=== PATIENT | female | born 1990 | race African-American/Black ===

== ENCOUNTER 2016-07-15 22:38 | Emergency (ER) | payer OTHER ==
[2016-07-15 22:45] VITALS: BMI 31.4
[2016-07-16 00:37] VITALS: BP 103/69; PULSE 97; TEMP 98
[2016-07-16 00:56] LABS: URINE APPEARANCE CLEAR; URINE BILIRUBIN NEGATIVE (NEGATIVE); URINE COLOR STRAW; URINE GLUCOSE (UA) NEGATIVE (NEGATIVE); URINE KETONE NEGATIVE (NEGATIVE); URINE NITRITE NEGATIVE (NEGATIVE); URINE PROTEIN NEGATIVE (NEGATIVE); URINE UROBILINOGEN NEGATIVE E.U./dl (0.2-1.0)
[2016-07-16 01:07] LABS: URINE BLOOD 1+ (NEGATIVE); URINE LEUK ESTERASE TRACE (NEGATIVE)
[2016-07-16 01:08] LABS: URINE BACTERIA RARE /hpf (NONE SEEN); URINE RBC <1 /hpf (0-3); URINE WBC 1 /hpf (3-5)
[2016-07-16 01:11] LABS: URINE MARIJUANA THC NEGATIVE ng/ml (CUTOFF=50)
== END 2016-07-16 00:27 | disposition left against medical advice (07) ==
LOC: JER 22:38
DX: O26.892 Other specified pregnancy related conditions, second trimester (principal); R10.30 Lower abdominal pain, unspecified; Z3A.27 27 weeks gestation of pregnancy
CPT/HCPCS: 80307; 81003; 81015; 99281-25

== ENCOUNTER 2017-07-08 04:37 | Emergency (ER) | payer OTHER ==
--- NOTE | 2017-07-08 04:44 | PDOC ---
History of Present Illness - General Stated Complaint: VOMITING Time Seen by Provider: 07/08/17 04:43 - History of Present Illness Initial Comments: 27 year old female with no significant PMH presenting with nausea, vomiting, diarrhea, and weakness for the past two days. Both her and her partner presented for similar problems but he was more well appearing and futher into the time course of the disease. Her symptoms were more vomiting predominant. She states she has had vomiting every hour for the past 10 hours and can't keep down any food. She also had one episode of chills with diaphoresis after each episode of vomiting. She has started to develop a slight headache. She denies chest pain, SOB, cough, congestion, or myalgias. 07/08/17 05:02 Past History - Past Medical History Allergies/Adverse Reactions: Allergies Allergy/AdvReac Type Severity Reaction Status Date / Time No Known Allergies Allergy Verified 07/08/17 04:52 Home Medications: Ambulatory Orders NK [No Known Home Medication] 02/15/16 Asthma: No Cancer: No Cardiac Disorders: No Diabetes: No HTN: No Seizures: No Thyroid Disease: No - Surgical History Abdominal Surgery: No - Reproductive History (#): 3 Para: 0 Spontaneous : 2 - Immunization History Immunization Up to Date: Yes - Suicide/Smoking/Psychosocial Hx Smoking Status: No Smoking History: Never smoked Have you smoked in the past 12 months: No Number of Cigarettes Smoked Daily: 0 Hx Alcohol Use: No Drug/Substance Use Hx: No Substance Use Type: None Hx Substance Use Treatment: No Review of Systems - Review of Systems Constitutional: Yes: Chills, Diaphoresis. No: Fever, Loss of Appetite HEENTM: No: Eye Pain, Blurred Vision, Recent change in vision Respiratory: No: Cough, Shortness of Breath, Wheezing, Productive cough Cardiac (ROS): Yes: Lightheadedness. No: Chest Pain, Irregular Heart Rate, Palpitations, Syncope, Chest Tightness ABD/GI: Yes: Nausea, Poor Appetite, Poor Fluid Intake, Vomiting, Abdominal cramping : No: Burning, Dysuria, Discharge, Frequency Musculoskeletal: No: Back Pain, Joint Pain, Neck Pain Integumentary: No: Bruising, Lesions, Lumps Neurological: Yes: Headache. No: Numbness, Paresthesia, Tremors, Unsteady Gait , Dizziness *Physical Exam - Physical Exam General Appearance: Yes: Nourished, Appropriately Dressed. No: Apparent Distress HEENT: positive: EOMI, ANGEL, Normal ENT Inspection, Normal Voice Neck: positive: Trachea midline, Normal Thyroid, Supple. negative: Tender, Rigid Respiratory/Chest: positive: Lungs Clear, Normal Breath Sounds. negative: Chest Tender, Respiratory Distress, Accessory Muscle Use Cardiovascular: positive: Regular Rhythm, Regular Rate Gastrointestinal/Abdominal: positive: Normal Bowel Sounds, Flat, Soft. negative : Tender Musculoskeletal: positive: Normal Inspection. negative: Decreased Range of Motion Extremity: positive: Normal Capillary Refill, Normal Inspection, Normal Range of Motion. negative: Tender Integumentary: positive: Normal Color, Dry, Warm Neurologic: positive: Fully Oriented, Alert, Normal Mood/Affect, Normal Response , Motor Strength 5/5 Medical Decision Making - Medical Decision Making 27 year old female with u-preg positive and nausea vomiting apparently resolved after one dose of Reglan. TVUS demonstrating a single IUP with heartbeat and ovaries unremarkable. Pending official transvaginal US and signed out to Dr. Cuevas in stable condition. 07/08/17 06:48 *DC/Admit/Observation/Transfer Diagnosis at time of Disposition: Qualifiers: Weeks of gestation: less than 8 weeks Qualified Code(s): Z3A.01 - Less than 8 weeks gestation of - Discharge Dispostion Disposition: HOME Condition at time of disposition: Improved - Referrals - Patient Instructions - Post Discharge Activity
[2017-07-08 04:56] VITALS: BMI 26.6
--- NOTE | 2017-07-08 05:00 | PDOC ---
History of Present Illness - General Chief Complaint: Nausea/Vomiting Stated Complaint: VOMITING Time Seen by Provider: 07/08/17 04:43 Past History - Past Medical History Allergies/Adverse Reactions: Allergies Allergy/AdvReac Type Severity Reaction Status Date / Time No Known Allergies Allergy Verified 07/08/17 04:52 Home Medications: Ambulatory Orders NK [No Known Home Medication] 02/15/16 Asthma: No Cancer: No Cardiac Disorders: No Diabetes: No HTN: No Seizures: No Thyroid Disease: No - Surgical History Abdominal Surgery: No - Reproductive History (#): 3 Para: 0 Spontaneous : 2 - Immunization History Immunization Up to Date: Yes - Suicide/Smoking/Psychosocial Hx Smoking Status: No Smoking History: Current some day smoker Have you smoked in the past 12 months: No Number of Cigarettes Smoked Daily: 2 Information on smoking cessation initiated: No Hx Alcohol Use: No Drug/Substance Use Hx: Yes ([facility]) Substance Use Type: None Hx Substance Use Treatment: No *Physical Exam - Vital Signs Last Vital Signs Temp Pulse Resp BP Pulse Ox 98.1 F 78 14 118/57 99 07/08/17 04:52 07/08/17 04:52 07/08/17 04:52 07/08/17 04:52 07/08/17 04:52
[2017-07-08] MEDS ORDERED: METOCLOPRAMIDE HCL INJECTION 10 MG/2 ML VIAL IVPUSH ONE (05:04)
[2017-07-08] MEDS ORDERED: SODIUM CHLORIDE 1,000 ML IV STA (05:06)
[2017-07-08] MEDS ORDERED: METOCLOPRAMIDE HCL INJECTION 10 MG/2 ML VIAL ONE (05:10)
[2017-07-08 05:40] LABS: URINE APPEARANCE CLEAR; URINE BILIRUBIN NEGATIVE (NEGATIVE); URINE BLOOD NEGATIVE (NEGATIVE); URINE COLOR YELLOW; URINE GLUCOSE (UA) NEGATIVE (NEGATIVE); URINE KETONE NEGATIVE (NEGATIVE); URINE LEUK ESTERASE NEGATIVE (NEGATIVE); URINE NITRITE NEGATIVE (NEGATIVE); URINE PROTEIN NEGATIVE (NEGATIVE); URINE UROBILINOGEN NEGATIVE mg/dL (0.2-1.0)
[2017-07-08 05:59] LABS: BASO % 0.1 % (0-2.0); HEMATOCRIT 40.4 % (32.4-45.2); HEMOGLOBIN 13.8 GM/dL (10.7-15.3); LYMPH % 5.5 % (8-40); MCH 30.3 pg (25.7-33.7); MEAN CELL VOLUME 89.1 fl (80-96); MEAN PLT VOLUME 8.1 fl (7.5-11.1); MONO % 4.4 % (3.8-10.2); PLATELET COUNT 278 K/MM3 (134-434); RBC 4.53 M/mm3 (3.60-5.2); RDW 13.1 % (11.6-15.6); WHITE BLOOD COUNT 9.8 K/mm3 (4.0-10.0)
--- NOTE | 2017-07-08 06:14 | PDOC ---
Attending Attestation - Resident Resident Name: Nirav Alvarado - HPI HPI: 07/08/17 06:14 Pt presents to the ED complaining of nausea and vomiting and diarrhea that started today. Denies fevers or urinary complaints. Also complains of a brief episode of pelvic pain that has now resolved. LMP 5 weeks ago. - Physicial Exam PE: 07/08/17 06:17 Agree with resident exam. PAtient is well appearing. Abdomen is non tender, non distetended. - Medical Decision Making 07/08/17 06:18 Pt presents to the ED complaining of nausea and vomiting. test is positive. Given episode of pelvic pain, need to evaluate for ectopic. Will check labs and BHCG, transvaginal US and reassess.
[2017-07-08 06:44] LABS: ALBUMIN 3.8 g/dl (3.4-5.0); ANION GAP 9 (8-16); BILIRUBIN,TOTAL 0.4 mg/dL (0.2-1.0); BLOOD UREA NITROGEN 9 mg/dL (7-18); CALCIUM 8.3 mg/dL (8.5-10.1); CHLORIDE 105 mmol/L (98-107); CO2 23 mmol/L (21-32); CREATININE 0.7 mg/dL (0.55-1.02); GLUCOSE,RANDOM 82 mg/dL (74-106); SGOT/AST 17 U/L (15-37); SGPT/ALT 27 U/L (12-78); SODIUM 137 mmol/L (136-145); TOT PROT 7.6 g/dl (6.4-8.2)
[2017-07-08 07:00] LABS: ALK PHOS 78 U/L (45-117)
--- NOTE | 2017-07-08 08:46 | PDOC ---
*Physical Exam - Vital Signs Last Vital Signs Temp Pulse Resp BP Pulse Ox 98.1 F 78 14 118/57 99 07/08/17 04:52 07/08/17 04:52 07/08/17 04:52 07/08/17 04:52 07/08/17 04:52 - Physical Exam Comments: 07/08/17 08:44 General Appearance: Nourished. No Apparent Distress HEENT: No Pharyngeal Erythema, Tonsillar Exudate, Tonsillar Erythema Neck: No Cervical Lymphadenopathy Respiratory/Chest: Lungs Clear, Normal Breath Sounds. No Crackles, Rales, Rhonchi, Wheezing Cardiovascular: Regular Rhythm, Regular Rate. No Murmur, Gallops, Rubs Gastrointestinal/Abdominal: Normal Bowel Sounds, Soft. No Guarding, Rebound, Tenderness Musculoskeletal: No CVA Tenderness Extremity: Normal Capillary Refill Integumentary: Normal Color, Dry, Warm Neurologic: Fully Oriented, Alert, Normal Mood/Affect, Normal Response, ED Treatment Course - LABORATORY CBC & Chemistry Diagram: 07/08/17 05:47 07/08/17 05:47 - ADDITIONAL ORDERS Additional order review: Laboratory Results 07/08/17 07/08/17 07/08/17 05:47 05:25 05:25 Sodium 137 Potassium 4.0 Chloride 105 Carbon Dioxide 23 Anion Gap 9 BUN 9 Creatinine 0.7 Creat Clearance w eGFR > 60 Random Glucose 82 Calcium 8.3 L Total Bilirubin 0.4 D AST 17 ALT 27 Alkaline Phosphatase 78 Total Protein 7.6 Albumin 3.8 Beta HCG, Quant 77547.0 Urine Color Yellow Urine Appearance Clear Urine pH 5.0 Ur Specific [place] 1.027 Urine Protein Negative Urine Glucose (UA) Negative Urine Ketones Negative Urine Blood Negative Urine Nitrite Negative Urine Bilirubin Negative Urine Urobilinogen Negative Ur Leukocyte Esterase Negative Urine HCG, Qual Positive 07/08/17 05:47 RBC 4.53 MCV 89.1 MCHC 34.0 RDW 13.1 MPV 8.1 Neutrophils % 89.0 H Lymphocytes % 5.5 L D Monocytes % 4.4 Eosinophils % 1.0 D Basophils % 0.1 - Medications Given in the ED: ED Medications Discontinued Medications Generic Name Dose Route Start Last Admin Trade Name Freq PRN Reason Stop Dose Admin Sodium Chloride 1,000 mls @ 1,000 mls/hr 07/08/17 05:06 07/08/17 05:54 Normal Saline - IV 07/08/17 06:05 1,000 mls/hr ASDIR STA Administration Metoclopramide HCl 10 mg 07/08/17 05:04 07/08/17 05:54 Reglan Injection - IVPUSH 07/08/17 05:05 10 mg ONCE ONE Administration Progress Note - Progress Note Progress Note: The patient is a 27 year old female who presented for evaluation of nausea, vomiting, diarrhea. Lab work demonstrated that the patient is , but is otherwise unremarkable. The patient is pending a transvaginal US prior to discharge with ob follow up. Medical Decision Making - Medical Decision Making 07/08/17 09:09 US demonstrated a single live intrauterine as read by our radiologist. We are comfortable discharging the patient home at this time with clinical research assistant follow up. We discussed the results and the plan with the patient who voiced understanding and is agreeable with the plan. *DC/Admit/Observation/Transfer Diagnosis at time of Disposition: Qualifiers: Weeks of gestation: less than 8 weeks Qualified Code(s): Z3A.01 - Less than 8 weeks gestation of - Discharge Dispostion Disposition: HOME Condition at time of disposition: Improved - Referrals Referrals: Hunter Carrera MD [Staff Physician] - - Patient Instructions Printed Discharge Instructions: DI for -- Discomforts and Remedies Additional Instructions: Please return to the ER if you experience concerning or worsening symptoms including worsening nausea, vomiting, fevers, or abdominal pain. Your lab results were normal but showed that you are . Please call to schedule a follow up appointment with your [facility] physician within 2-3 days to further discuss your ER visit and . - Post Discharge Activity
[2017-07-08 09:11] VITALS: BP 105/46; PULSE 69; TEMP 98.2
== END 2017-07-08 09:22 | disposition home or self-care (01) ==
LOC: JER 04:37
PROC: 3E0337Z Introduction of Electrolytic and Water Balance Substance into Peripheral Vein, Percutaneous Approach (ICD-10-PCS; principal; 2017-07-08)
PROC: 3E033GC Introduction of Other Therapeutic Substance into Peripheral Vein, Percutaneous Approach (ICD-10-PCS; 2017-07-08)
DX: O26.891 Other specified pregnancy related conditions, first trimester (principal); R10.2 Pelvic and perineal pain; Z3A.01 Less than 8 weeks gestation of pregnancy
CPT/HCPCS: 36415; 76817-TC; 80053; 81003; 84702; 84703; 85025; 96361; 96374; 99283-25; J7030

== ENCOUNTER 2018-03-17 10:22 | Emergency (ER) | payer OTHER ==
[2018-03-17 11:05] VITALS: BMI 26.2
[2018-03-17] MEDS ORDERED: SODIUM CHLORIDE 0.9% 500 ML INFUS.BAG IV ONE (11:37)
[2018-03-17] MEDS ORDERED: ACETAMINOPHEN 325 MG TABLET (FP) PO ONE (11:38)
--- NOTE | 2018-03-17 11:38 | PDOC ---
History of Present Illness - General Chief Complaint: Nausea/Vomiting Stated Complaint: THROAT PROBLEM Time Seen by Provider: 03/17/18 11:27 History Source: Patient Exam Limitations: No Limitations - History of Present Illness Initial Comments: 03/17/18 13:22 The patient is a 27-year-old female, with no past medical history, who presents to the ED with headache and nausea, sore throat and difficulty swallowing for the past 2 days. The patient denies vomiting but confirms spitting up clear liquid. She has associated symptoms of fever, chills, sore throat, trouble swallowing, ear pain, and general weakness. LMP 1 month ago. +sick contacts include child with cough/URI sx. No travel. Denies abdominal pain or diarrhea, no urinary sx. Denies urinary symptoms. Allergies: NKA Surgical history: C section PCP: none reported Past History - Past Medical History Allergies/Adverse Reactions: Allergies Allergy/AdvReac Type Severity Reaction Status Date / Time No Known Allergies Allergy Verified 03/17/18 11:00 Home Medications: Ambulatory Orders Ibuprofen 600 mg PO Q8H PRN #20 tablet 03/17/18 Ondansetron [Zofran Odt -] 4 mg SL TID PRN #9 od.tablet 03/17/18 Asthma: No Cancer: No Cardiac Disorders: No COPD: No Diabetes: No HTN: No Seizures: No Thyroid Disease: No - Surgical History Abdominal Surgery: No - Reproductive History (#): 3 Para: 0 Cervical CA: No Dysfunctional Uterine Bleeding: No Ectopic : No Endometrial CA: No Polycystic Ovaries: No Tubal Ligation: No Spontaneous : 0 - Immunization History Immunization Up to Date: Yes - Suicide/Smoking/Psychosocial Hx Smoking Status: No Smoking History: Unknown if ever smoked Have you smoked in the past 12 months: No Number of Cigarettes Smoked Daily: 0 Hx Alcohol Use: No Drug/Substance Use Hx: No Substance Use Type: None Hx Substance Use Treatment: No Review of Systems - Review of Systems Able to Perform ROS?: Yes Comments:: 03/17/18 13:23 GENERAL/CONSTITUTIONAL: +Fever and chills. +Weakness. no sweats. HEAD, EYES, EARS, NOSE AND THROAT: No change in vision or hearing. +Ear pain. + Sore throat. +Difficulty swallowing. No congestion. CARDIOVASCULAR: No chest pain or palpitations, syncope or edema. RESPIRATORY: No SOB, cough, wheezing, or hemoptysis. GASTROINTESTINAL +Nausea and vomiting. No diarrhea or constipation. No bloody stools. GENITOURINARY: No hematuria, dysuria, frequency, urgency or other changes. MUSCULOSKELETAL: No joint or muscle swelling or pain. No neck or back pain. SKIN: No rash or changes in skin color or lesions. NEUROLOGIC: +Headache. No vertigo, loss of consciousness, or change in strength/ sensation. HEMATOLOGIC/LYMPHATIC: No anemia, easy bruising/bleeding, or history of blood clots. ALLERGIC/IMMUNOLOGIC: No allergies All other systems reviewed and negative, or as documented in HPI. *Physical Exam - Vital Signs Last Vital Signs Temp Pulse Resp BP Pulse Ox 100.2 F H 86 16 111/68 99 03/17/18 10:50 03/17/18 10:50 03/17/18 10:50 03/17/18 10:50 03/17/18 10:50 - Physical Exam Comments: 03/17/18 13:23 General: Well appearing, awake and alert, NAD. malaised HEENT: NCAT, PERRL, EOMI, clear conjunctiva, anicteric, dry mucus membranes. Airway patent, normal phonation. Uvula midline. No sinus tenderness, TM clear, no pinna tenderness to manipulation. Bilateral tonsil hypertrophy with exudates. No trismus. Neck: neck supple, FROM Resp: CTAB, normal and even respirations, no respiratory distress CVS: +tachycardic,, no murmurs, 2+ peripheral pulses throughout, no peripheral edema Abdomen: soft, NTND, no peritoneal signs. Back: nontender, normal inspection and ROM MSK: no edema, WINN x4, ROM intact. No clubbing or cyanosis. normal bulk and tone. Neuro: alert, oriented appropriately Skin: warm and well perfused, cap refill <2 sec, normal color ED Treatment Course - LABORATORY CBC & Chemistry Diagram: 03/17/18 12:00 03/17/18 12:00 Medical Decision Making - Medical Decision Making 03/17/18 12:22 I, Flaquita Ferris MD, attest that this document has been prepared under my direction and personally reviewed by me in its entirety. I further attest, that it accurately reflects all work, treatment, procedures and medical decision -making performed by me. 27-year-old female with no medical history presenting with sore throat, nausea, headache, dizziness. Differential diagnosis includes pharyngitis, strep throat, mononucleosis, [employer], RPA, epiglottitis, viral syndrome, dehydration, electrolyte/metabolic derangements less likely airway involvement, epiglottitis, RPA or [employer] MEMBER as normal phonation and clear tonsillar findings to suggest mono vs pharyngitis vs strep Vital signs notable for fever otherwise no respiratory distress. Airway patent. Exam of the oropharynx revealed bilateral exudates and tonsillar hypertrophy. strep test_ Positive for Group A strep monoscreen performed, pending results. basic labs and lytes with +leukocytosis of 17K, c/w infection/inflammation. normal lytes .neg preg test. ED course: given antipyretics, tylenol/toradol, IVF, dexamethasone and reglan for headache treatment. VENTURA likely from fever. strep pharyngitis confirmed, pt elects for Bicillin IM shot, which is appropriate on clinical reeval, feels much improved, tolerating PO juice and fluids. eager for discharge. airway remains patent, breathing comfortable steroids and abx will cover her infection and acute inflammation. hand hygiene, wash hands soap and water, respiratory precautions, salt water gargles, motrin/tylenol PRN analgesia and antipyretics. warm lemon tea and c/w supportive care. dispo: Pt to be discharged in stable condition. Patient and family made aware of impression and plan, return precautions discussed (including but not limited to worsening pain or symptoms), fevers, or signs of infection, chest pain, respiratory distress, inability to tolerate oral intake, dehydration, syncope, or neurologic changes). Follow up with PMD and/or specialist as recommended, follow up information provided, take medications as instructed for duration of time. continue with supportive care, avoid triggers and precipitants. All questions answered to patient's satisfaction and expressed understanding and comfort with this. 03/17/18 13:25 03/17/18 13:28 *DC/Admit/Observation/Transfer Diagnosis at time of Disposition: Strep pharyngitis - Discharge Dispostion Disposition: HOME Condition at time of disposition: Improved Decision to Admit order: No - Prescriptions Prescriptions: Ibuprofen 600 mg PO Q8H PRN #20 tablet PRN Reason: Pain Level 4 - 6 Ondansetron [Zofran Odt -] 4 mg SL TID PRN #9 od.tablet PRN Reason: Nausea And/Or Vomiting - Referrals Referrals: William Christianson MD [Staff Physician] - [facility] [Provider Group] [facility] [Provider Group] - Patient Instructions Printed Discharge Instructions: DI for Strep Throat, DI for Vomiting -- Adult, DI for Nausea -- Adult Additional Instructions: Your laboratory / imaging results were significant for elevated white blood cell count to signify infection your Strep test was positive you were treated with a shot of penicillin and IV steroids, so will improve your symptoms over the next 24-48 hours Follow up with your physician and consultants as instructed, take your medications as instructed including zofran every 8 hours as needed for nausea. motrin/tylenol as needed for fever and/or pain. stay well hydrated, adequate fluids. salt water gargles, warm lemon tea to soothe the throat wash your hands with soap and water and avoid coughing and spreading infection. work note also provided Return if worsening symptoms including fevers, headache, vomiting, visual or hearing disturbances, abdominal pain, chest pain, shortness of breath, syncope, dehydration, inability to take things by mouth/vomiting, altered mental status, or worsening concerning symptoms. do not drink alcohol with your medications. - Post Discharge Activity Forms/Work/School Notes: Back to Work
[2018-03-17] MEDS ORDERED: ACETAMINOPHEN 325 MG TABLET (FP) ONE (11:59)
[2018-03-17] MEDS ORDERED: DEXAMETHASONE SOD PHOSPHATE 20 MG/5 ML VIAL IVPB ONE (12:21)
[2018-03-17] MEDS ORDERED: METOCLOPRAMIDE HCL INJECTION 10 MG/2 ML VIAL IVPUSH ONE (12:21)
[2018-03-17 12:24] LABS: BASO % 0.4 % (0-2.0); EOS % 0.3 % (0-4.5); HEMATOCRIT 37.2 % (32.4-45.2); HEMOGLOBIN 12.7 GM/dL (10.7-15.3); LYMPH % 7.9 % (8-40); MCH 29.9 pg (25.7-33.7); MCHC 34.3 g/dl (32.0-36.0); MEAN CELL VOLUME 87.2 fl (80-96); MEAN PLT VOLUME 8.6 fl (7.5-11.1); MONO % 7.3 % (3.8-10.2); NEUT % 84.1 % (42.8-82.8); PLATELET COUNT 259 K/MM3 (134-434); RBC 4.26 M/mm3 (3.60-5.2); RDW 13.3 % (11.6-15.6); WHITE BLOOD COUNT 17.3 K/mm3 (4.0-10.0)
[2018-03-17] MEDS ORDERED: METOCLOPRAMIDE HCL INJECTION 10 MG/2 ML VIAL ONE (12:26)
[2018-03-17] MEDS ORDERED: DEXAMETHASONE SOD PHOSPHATE 10 MG/1 ML VIAL ONE (12:26)
[2018-03-17 12:44] LABS: ALBUMIN 3.8 g/dl (3.4-5.0); ALK PHOS 85 U/L (45-117); ANION GAP 9 MMOL/L (8-16); BILIRUBIN,TOTAL 0.6 mg/dL (0.2-1); BLOOD UREA NITROGEN 7 mg/dL (7-18); CALCIUM 9.2 mg/dL (8.5-10.1); CHLORIDE 101 mmol/L (98-107); CO2 26 mmol/L (21-32); CREATININE 0.8 mg/dL (0.55-1.3); GLUCOSE,RANDOM 68 mg/dL (74-106); LIPASE 58 U/L (73-393); POTASSIUM 3.9 mmol/L (3.5-5.1); SGOT/AST 15 U/L (15-37); SGPT/ALT 25 U/L (13-61); SODIUM 135 mmol/L (136-145); TOT PROT 8.1 g/dl (6.4-8.2)
[2018-03-17] MEDS ORDERED: PENICILLIN G BENZATHINE 1,200,000 UNIT/2 ML PFS IM ONE (13:21)
[2018-03-17] MEDS ORDERED: KETOROLAC TROMETHAMINE 15 MG/ML VIAL IVPUSH ONE (13:21)
[2018-03-17] MEDS ORDERED: KETOROLAC TROMETHAMINE 15 MG/ML VIAL ONE (13:41)
[2018-03-17] MEDS ORDERED: PENICILLIN G BENZATHINE 2,400,000 UNIT/4 ML PFS ONE (13:47)
[2018-03-17 13:56] VITALS: BP 97/69; PULSE 85; TEMP 99.4
== END 2018-03-17 13:56 | disposition home or self-care (01) ==
LOC: JER 10:22
PROC: 3E02329 Introduction of Other Anti-infective into Muscle, Percutaneous Approach (ICD-10-PCS; principal; 2018-03-17)
PROC: 3E0333Z Introduction of Anti-inflammatory into Peripheral Vein, Percutaneous Approach (ICD-10-PCS; 2018-03-17)
PROC: 3E033GC Introduction of Other Therapeutic Substance into Peripheral Vein, Percutaneous Approach (ICD-10-PCS; 2018-03-17)
PROC: 3E0333Z Introduction of Anti-inflammatory into Peripheral Vein, Percutaneous Approach (ICD-10-PCS; 2018-03-17)
DX: J02.0 Streptococcal pharyngitis (principal); B95.0 Streptococcus, group A, as the cause of diseases classified elsewhere
CPT/HCPCS: 36415; 80053; 83690; 84703; 85025; 96372; 96374; 96375; 99282-25

== ENCOUNTER 2018-07-22 09:46 | Emergency (ER) | payer OTHER ==
[2018-07-22 09:59] VITALS: BP 101/54; PULSE 67; TEMP 98.3; BMI 27.1
--- NOTE | 2018-07-22 10:38 | PDOC ---
History of Present Illness - General History Source: Patient Exam Limitations: No Limitations <Marlee Hannon - Last Filed: 07/22/18 12:06> <Siddhartha Esquivel - Last Filed: 07/22/18 16:30> - General Chief Complaint: Chest Pain Stated Complaint: CHEST PAIN Time Seen by Provider: 07/22/18 10:37 - History of Present Illness Initial Comments: 07/22/18 12:06 Patient is a 28 year old female with no significant past medical history who presents with chest pain, sharp left sided in character, lasting for the past several weeks, nonpleuritic, intermittent, exacerbating with stress, and occurring for approximately minutes at a time. Patient notes her pain to worsen today, prompting her arrival to the ED. She is currently on oral contraceptives and had an elective D&C 07/18. She denies recent palpitations or shortness of breath. She denies recent fevers, chills, headache or dizziness. She denies recent nausea, vomit, diarrhea or constipation. She denies recent dysuria, frequency, urgency or hematuria. Allergies: NKDA Past surgical history: Elective D&C. (Marlee Hannon) Past History <Marlee Hannon - Last Filed: 07/22/18 12:06> - Past Medical History Asthma: No Cancer: No Cardiac Disorders: No COPD: No Diabetes: No HTN: No Seizures: No Thyroid Disease: No - Surgical History Abdominal Surgery: No - Reproductive History (#): 3 Para: 0 Cervical CA: No Dysfunctional Uterine Bleeding: No Ectopic : No Endometrial CA: No Polycystic Ovaries: No Tubal Ligation: No Spontaneous : 0 - Immunization History Immunization Up to Date: Yes - Suicide/Smoking/Psychosocial Hx Smoking Status: No Smoking History: Never smoked Have you smoked in the past 12 months: No Number of Cigarettes Smoked Daily: 0 Hx Alcohol Use: No Drug/Substance Use Hx: No Substance Use Type: None Hx Substance Use Treatment: No <Siddhartha Esquivel - Last Filed: 07/22/18 16:30> - Past Medical History Allergies/Adverse Reactions: Allergies Allergy/AdvReac Type Severity Reaction Status Date / Time No Known Allergies Allergy Verified 07/22/18 09:55 Home Medications: Ambulatory Orders NK [No Known Home Medication] 07/22/18 Review of Systems - Review of Systems Able to Perform ROS?: Yes All Other Systems: Reviewed and Negative <Marlee Hannon - Last Filed: 07/22/18 12:06> <Siddhartha Esquivel - Last Filed: 07/22/18 16:30> - Review of Systems Comments:: 07/22/18 12:06 CONSTITUTIONAL: No fever, no chills, no fatigue EYES: No visual changes ENT: No ear pain, no sore throat CARDIOVASCULAR: +Chest pain. No palpitations RESPIRATORY: No cough, no SOB GI: No abdominal pain, no nausea, no vomiting, no constipation, no diarrhea GENITOURINARY: No dysuria, no frequency, no hematuria MUSKULOSKELETAL: No back pain, no joint pain, no myalgias SKIN: No rash NEURO: No headache (Marlee Hannon) *Physical Exam <Marlee Hannon - Last Filed: 07/22/18 12:06> <Siddhartha Esquivel - Last Filed: 07/22/18 16:30> - Vital Signs Last Vital Signs Temp Pulse Resp BP Pulse Ox 98.3 F 67 18 101/54 L 100 07/22/18 09:56 07/22/18 09:56 07/22/18 09:56 07/22/18 09:56 07/22/18 09:56 - Physical Exam Comments: 07/22/18 12:06 CONSTITUTIONAL: Well-appearing; well-nourished; in no apparent distress HEAD: Normocephalic; atraumatic EYES: PERRL; EOM intact ENMT: External appears normal; normal oropharynx NECK: Supple; non-tender; no cervical lymphadenopathy CARD: Normal S1, S2; no murmurs, rubs, or gallops RESP: Normal chest excursion with respiration; breath sounds clear and equal bilaterally; no wheezes, rhonchi, or rales ABD: Soft, non-distended; non-tender; no palpable organomegaly, no palpable hernias EXT: Normal ROM in all four extremities; non-tender to palpation; distal pulses intact SKIN: Warm, dry, no rash NEURO: No focal neurological deficiencies. (Marlee Hannon) Heart Score/ECG Review <Marlee Hannon - Last Filed: 07/22/18 12:06> <Siddhartha Esquivel - Last Filed: 07/22/18 16:30> #1 EKG performed at: 22 July 2018 at 10:58 Vent Rate 67 bpm NV interval 184 ms QRS duration 76 ms QT/QTc 406/429 ms P-R-T axes 39 65 52 Normal sinus rhythm Normal ECG (Marlee Hannon) ED Treatment Course - LABORATORY CBC & Chemistry Diagram: 07/22/18 12:45 07/22/18 12:45 <Siddhartha Esquivel - Last Filed: 07/22/18 16:30> - ADDITIONAL ORDERS Additional order review: Laboratory Results 07/22/18 07/22/18 12:45 12:45 Sodium 138 Potassium 3.8 Chloride 107 Carbon Dioxide 25 Anion Gap 5 L BUN 9 Creatinine 0.7 Creat Clearance w eGFR 100.38 Random Glucose 75 Calcium 8.9 Total Bilirubin 0.2 AST 25 ALT 33 Alkaline Phosphatase 69 Creatine Kinase 83 Troponin I < 0.02 Total Protein 7.5 Albumin 3.4 Serum , Qual Positive 07/22/18 12:45 RBC 3.82 MCV 88.3 MCHC 32.7 RDW 15.6 D MPV 7.8 Neutrophils % 55.5 D Lymphocytes % 31.6 D Monocytes % 8.2 Eosinophils % 4.1 D Basophils % 0.6 - RADIOLOGY Radiology Studies Ordered: Category Date Time Status CHEST CTA [CT] Stat CT Scan 07/22/18 14:19 Taken DUPLEX VASCUL US-2LEGS [US] Stat Ultrasound 07/22/18 10:55 Completed - Medications Given in the ED: ED Medications Discontinued Medications Generic Name Dose Route Start Last Admin Trade Name Freq PRN Reason Stop Dose Admin Acetaminophen 650 mg 07/22/18 15:53 07/22/18 16:00 Tylenol - PO 07/22/18 15:54 650 mg ONCE ONE Administration Medical Decision Making <Marlee Hannon - Last Filed: 07/22/18 12:06> <Siddhartha Esquivel - Last Filed: 07/22/18 16:30> - Medical Decision Making 07/22/18 16:27 28-year-old female, 4 days post dilation and evacuation, on OCPs presents with atraumatic pleuritic left-sided chest wall discomfort that has persisted for the past several weeks. Patient moderate risk of PE by Wells criteria. Lower extremity Doppler ultrasound shows no evidence of DVT. CTA of chest obtained. Patient requesting to be discharged due to familial circumstances and promises to return if the PE is identified on the CT. i advised her of the danger associated with untreated PE. She is expressed understanding. (Siddhartha Esquivel) *DC/Admit/Observation/Transfer <Marlee Hannon - Last Filed: 07/22/18 12:06> <Siddhartha Esquivel - Last Filed: 07/22/18 16:30> Diagnosis at time of Disposition: Atypical chest pain - Discharge Dispostion Disposition: HOME Condition at time of disposition: Stable - Referrals Referrals: Sincere Olivas MD [Staff Physician] - - Patient Instructions Printed Discharge Instructions: DI for Atypical Chest Pain - Post Discharge Activity Forms/Work/School Notes: Back to School - Attestations Scribe Attestion: 07/22/18 12:08 Documentation prepared by Marlee Hannon, acting as certified court/medical interpreter for Siddhartha Esquivel MD. (Marlee Hannon)
--- NOTE | 2018-07-22 11:32 | EKG ---
Test Reason : Blood Pressure : / mmHG Vent. Rate : 060 BPM Atrial Rate : 060 BPM P-R Int : 184 ms QRS Dur : 078 ms QT Int : 400 ms P-R-T Axes : 035 066 046 degrees QTc Int : 400 ms SINUS RHYTHM WITH MARKED SINUS ARRHYTHMIA NONSPECIFIC T WAVE ABNORMALITY ABNORMAL ECG WHEN COMPARED WITH ECG OF 21-JUN-2015 15:03, NO SIGNIFICANT CHANGE WAS FOUND Confirmed by JOSIE JOYA, LAUREN ([id number] on 07/22/2018 11:31:42 AM Referred By: Confirmed By:LAUREN GALINDO MD
[2018-07-22 13:27] LABS: BASO % 0.6 % (0-2.0); EOS % 4.1 % (0-4.5); HEMATOCRIT 33.8 % (32.4-45.2); HEMOGLOBIN 11.1 GM/dL (10.7-15.3); LYMPH % 31.6 % (8-40); MCH 28.9 pg (25.7-33.7); MCHC 32.7 g/dl (32.0-36.0); MEAN CELL VOLUME 88.3 fl (80-96); MEAN PLT VOLUME 7.8 fl (7.5-11.1); MONO % 8.2 % (3.8-10.2); NEUT % 55.5 % (42.8-82.8); PLATELET COUNT 260 K/MM3 (134-434); RBC 3.82 M/mm3 (3.60-5.2); RDW 15.6 % (11.6-15.6); WHITE BLOOD COUNT 7.9 K/mm3 (4.0-10.0)
[2018-07-22 13:53] LABS: ALBUMIN 3.4 g/dl (3.4-5.0); ALK PHOS 69 U/L (45-117); ANION GAP 5 MMOL/L (8-16); BILIRUBIN,TOTAL 0.2 mg/dL (0.2-1); BLOOD UREA NITROGEN 9 mg/dL (7-18); CALCIUM 8.9 mg/dL (8.5-10.1); CHLORIDE 107 mmol/L (98-107); CO2 25 mmol/L (21-32); CREATININE 0.7 mg/dL (0.55-1.3); GLUCOSE,RANDOM 75 mg/dL (74-106); POTASSIUM 3.8 mmol/L (3.5-5.1); SGOT/AST 25 U/L (15-37); SGPT/ALT 33 U/L (13-61); SODIUM 138 mmol/L (136-145); TOT PROT 7.5 g/dl (6.4-8.2)
[2018-07-22] MEDS ORDERED: ACETAMINOPHEN 325 MG TABLET (FP) PO ONE (15:53)
[2018-07-22] MEDS ORDERED: ACETAMINOPHEN 325 MG TABLET (FP) ONE (15:54)
--- NOTE | 2018-07-23 15:17 | EKG ---
Test Reason : Blood Pressure : / mmHG Vent. Rate : 067 BPM Atrial Rate : 067 BPM P-R Int : 184 ms QRS Dur : 076 ms QT Int : 406 ms P-R-T Axes : 039 065 052 degrees QTc Int : 429 ms NORMAL SINUS RHYTHM NORMAL ECG WHEN COMPARED WITH ECG OF 22-JUL-2018 09:41, NO SIGNIFICANT CHANGE WAS FOUND Confirmed by KASEY MARTIN MD ([id number]) on 07/23/2018 3:16:31 PM Referred By: Confirmed By:KASEY MARTIN MD
== END 2018-07-22 16:35 | disposition home or self-care (01) ==
LOC: JER 09:46
DX: R07.89 Other chest pain (principal)
CPT/HCPCS: 36415; 71275-TC; 80053; 82550; 84484; 84703; 85025; 93005; 93010; 93970-TC; 99283-25

== ENCOUNTER 2022-07-09 10:58 | Emergency (ER) | payer OTHER ==
[2022-07-09 11:21] VITALS: PULSE 74; RESP 18; BMI 24.2
[2022-07-09] MEDS ORDERED: SODIUM CHLORIDE 0.9% 500 ML INFUS.BAG IV ONE (12:25)
[2022-07-09] MEDS ORDERED: ACETAMINOPHEN 1000 MG/100 ML BAG IVPB ONE (12:26)
[2022-07-09] MEDS ORDERED: ACETAMINOPHEN INJECTION 100 ML IVPB ONE (12:34)
[2022-07-09 12:45] LABS: BASO % 0.5 % (0-2.0); HEMATOCRIT 35.6 % (32.4-45.2); HEMOGLOBIN 11.7 GM/dL (10.7-15.3); MCHC 32.9 g/dl (32.0-36.0); MEAN CELL VOLUME 85.2 fl (80-96); MEAN PLT VOLUME 7.8 fl (7.5-11.1); MONO % 6.5 % (3.8-10.2); PLATELET COUNT 291 10^3/uL (134-434); RBC 4.18 M/mm3 (3.60-5.2); RDW 14.8 % (11.6-15.6); WHITE BLOOD COUNT 10.1 K/mm3 (4.0-10.0)
[2022-07-09 13:28] VITALS: BP 103/61; TEMP 98.8
[2022-07-09 13:33] LABS: THROAT:GRP A STREP NOT DETECTED (NOTDETECTED)
[2022-07-09 13:36] LABS: EPI CELLS 11 /uL (0-25.1); HYALINE CASTS 1 /uL (0-3.1); URINE APPEARANCE CLEAR; URINE BACTERIA 11 /uL (0-1359); URINE BILIRUBIN NEGATIVE (NEGATIVE); URINE COLOR YELLOW; URINE GLUCOSE (UA) NEGATIVE (NEGATIVE); URINE KETONE TRACE (NEGATIVE); URINE LEUK ESTERASE NEGATIVE (NEGATIVE); URINE NITRITE NEGATIVE (NEGATIVE); URINE PROTEIN NEGATIVE (NEGATIVE); URINE RBC 55 /uL (0-23.9); URINE WBC 9 /uL (0-25.8)
[2022-07-09 13:45] LABS: CALCIUM 8.9 mg/dL (8.5-10.1)
[2022-07-09 13:46] LABS: ALBUMIN 3.4 g/dl (3.4-5.0)
[2022-07-09 13:48] LABS: CREATININE 0.8 mg/dL (0.55-1.3)
[2022-07-09 13:50] LABS: BILIRUBIN,TOTAL 0.4 mg/dL (0.2-1); TOT PROT 7.3 g/dl (6.4-8.2)
[2022-07-09] MEDS ORDERED: FAMOTIDINE 20 MG/50 ML IVPB 20 MG/50 ML MG IVPB ONE ×2 (13:59→15:26)
== END 2022-07-09 16:30 | disposition home or self-care (01) ==
LOC: JER 10:58
PROC: 3E033GC Introduction of Other Therapeutic Substance into Peripheral Vein, Percutaneous Approach (ICD-10-PCS; principal; 2022-07-09)
PROC: 3E033NZ Introduction of Analgesics, Hypnotics, Sedatives into Peripheral Vein, Percutaneous Approach (ICD-10-PCS; 2022-07-09)
DX: O99.511 Diseases of the respiratory system complicating pregnancy, first trimester (principal); R07.0 Pain in throat; O26.891 Other specified pregnancy related conditions, first trimester; R10.2 Pelvic and perineal pain; Z3A.01 Less than 8 weeks gestation of pregnancy; Z20.822 Contact with and (suspected) exposure to COVID-19
CPT/HCPCS: 0241U-QW; 36415; 76817-TC; 80053; 81003; 84702; 85025; 86850; 86900; 86901; 87086; 87651; 99284-25

== ENCOUNTER 2022-07-13 16:02 | Emergency (ER) | payer OTHER ==
[2022-07-13 16:16] VITALS: BP 104/65; PULSE 71; RESP 18; TEMP 98.4; BMI 23.5
[2022-07-13] MEDS ORDERED: ACETAMINOPHEN 500 MG TABLET (FP) PO ONE (16:39)
[2022-07-13] MEDS ORDERED: ACETAMINOPHEN 500 MG TABLET (FP) ONE (16:53)
[2022-07-13 17:11] LABS: BASO % 1.3 % (0-2.0); EOS % 2.5 % (0-4.5); HEMATOCRIT 34.2 % (32.4-45.2); HEMOGLOBIN 11.5 GM/dL (10.7-15.3); MCH 28.4 pg (25.7-33.7); MCHC 33.6 g/dl (32.0-36.0); MEAN CELL VOLUME 84.5 fl (80-96); MEAN PLT VOLUME 7.2 fl (7.5-11.1); MONO % 10.4 % (3.8-10.2); NEUT % 57.8 % (42.8-82.8); PLATELET COUNT 316 10^3/uL (134-434); RBC 4.05 M/mm3 (3.60-5.2); RDW 14.3 % (11.6-15.6); WHITE BLOOD COUNT 10.4 K/mm3 (4.0-10.0)
[2022-07-13 17:21] LABS: PH,URINE 6.5 (5.0-8.0); URINE APPEARANCE CLEAR; URINE BILIRUBIN NEGATIVE (NEGATIVE); URINE COLOR YELLOW; URINE GLUCOSE (UA) NEGATIVE (NEGATIVE); URINE KETONE TRACE (NEGATIVE); URINE LEUK ESTERASE NEGATIVE (NEGATIVE); URINE NITRITE NEGATIVE (NEGATIVE); URINE PROTEIN NEGATIVE (NEGATIVE)
[2022-07-13 18:08] LABS: BLOOD UREA NITROGEN 11.3 mg/dL (7-18)
[2022-07-13 18:11] LABS: CREATININE 0.8 mg/dL (0.55-1.3)
== END 2022-07-13 20:48 | disposition home or self-care (01) ==
LOC: JER 16:02
DX: O20.9 Hemorrhage in early pregnancy, unspecified (principal); Z3A.01 Less than 8 weeks gestation of pregnancy
CPT/HCPCS: 36415; 76817-TC; 80048; 81003; 84702; 85025; 86850; 86900; 86901; 87086; 99284-25

== ENCOUNTER 2022-09-09 20:59 | Emergency (ER) | payer OTHER ==
[2022-09-09 21:04] VITALS: BP 97/66; PULSE 80; RESP 18; TEMP 98.9; BMI 27.9
[2022-09-09] MEDS ORDERED: PENICILLIN G BENZATHINE 1,200,000 UNIT/2 ML PFS IM ONE ×2 (22:37→22:41)
[2022-09-09] MEDS ORDERED: DEXAMETHASONE SOD PHOSPHATE 10 MG/1 ML VIAL PO ONE (22:37)
[2022-09-09] MEDS ORDERED: DEXAMETHASONE SOD PHOSPHATE 10 MG/1 ML VIAL ONE (22:40)
== END 2022-09-09 22:49 | disposition home or self-care (01) ==
LOC: JERFT 20:59
PROC: 3E033GC Introduction of Other Therapeutic Substance into Peripheral Vein, Percutaneous Approach (ICD-10-PCS; principal; 2022-09-09)
PROC: 3E0234Z Introduction of Serum, Toxoid and Vaccine into Muscle, Percutaneous Approach (ICD-10-PCS; 2022-09-09)
DX: R07.0 Pain in throat (principal); R13.10 Dysphagia, unspecified; J03.90 Acute tonsillitis, unspecified
CPT/HCPCS: 99284-25; J1100

== ENCOUNTER 2023-06-09 07:00 | Inpatient (IN) | payer OTHER ==
[2023-06-09] MEDS: ELECTROLYTE-148 SOLN 1,000 ML IV SCH (08:30)
[2023-06-09 09:09] VITALS: BMI 34.1
[2023-06-09 09:10] LABS: BASO % 0.4 % (0-2.0); EOS % 1.6 % (0-4.5); HEMATOCRIT 32.1 % (32.4-45.2); HEMOGLOBIN 10.9 GM/dL (10.7-15.3); LYMPH % 17.7 % (8-40); MCH 29.2 pg (25.7-33.7); MCHC 33.8 g/dl (32.0-36.0); MEAN CELL VOLUME 86.4 fl (80-96); MEAN PLT VOLUME 7.9 fl (7.5-11.1); MONO % 8.7 % (3.8-10.2); NEUT % 71.6 % (42.8-82.8); PLATELET COUNT 252 10^3/uL (134-434); RBC 3.72 M/mm3 (3.60-5.2); RDW 14.9 % (11.6-15.6)
[2023-06-09 09:13] LABS: INR 0.97 (0.83-1.09); PROTHROMBIN TIME (PATIENT) 11.3 SEC (9.7-13.0)
[2023-06-09 09:22] LABS: CALCIUM 8.3 mg/dL (8.5-10.1)
[2023-06-09 09:26] LABS: CREATININE 0.6 mg/dL (0.55-1.3)
[2023-06-09] MEDS: CITRIC ACID/SODIUM CITRATE 30 ML UNIT-DOSE CUP PO ONE (09:55)
[2023-06-09] MEDS: FERROUS SO4 325 MG TABLET (FP) PO SCH (10:20)
[2023-06-09] MEDS: PRENATAL VITAMINS W/ FOLIC ACID TABLET (FP) PO SCH (10:21)
[2023-06-09] MEDS ORDERED: morphine SULFATE/PF 1 MG/2 ML (2cc Syringe - QUVA) EP ONE (10:36)
[2023-06-09] MEDS ORDERED: PHENYLEPHRINE HCL 10 MG/1 ML SINGLE DOSE VIAL ONE (10:44)
[2023-06-09] MEDS ORDERED: SODIUM CHLORIDE 0.9% P/F 10 ML VIAL IJ ONE (10:44)
[2023-06-09] MEDS ORDERED: ceFAZolin SODIUM 1 GM VIAL ONE (10:44)
[2023-06-09] MEDS ORDERED: OXYTOCIN 10 UNITS/ML VIAL ONE ×2 (11:35→11:52)
[2023-06-09] MEDS ORDERED: ONDANSETRON 4 MG/2 ML VIAL ONE (11:42)
[2023-06-09] MEDS ORDERED: MIDAZOLAM HCL 2 MG/2 ML SINGLE DOSE VIAL ONE (11:43)
[2023-06-09 12:19] LABS: CORD BASE EXCESS -2.3 mmol/L (0-2); CORD HCO3 24.4 mmHg (20-29); CORD PCO2 49.1 mmHg (30-78); CORD pH 7.314 (7.14-7.44)
[2023-06-09 12:21] LABS: CORD HCO3 24.6 mmHg (20-29); CORD PCO2 44.4 mmHg (30-78); CORD pH 7.362 (7.14-7.44)
[2023-06-09 12:31] LABS: HIV INTERPRETATION NEGATIVE (NEGATIVE)
[2023-06-09] MEDS: METHYLERGONOVINE MALEATE 0.2 MG/1 ML AMP IM PRN (13:15)
[2023-06-09] MEDS ORDERED: IBUPROFEN 800 MG/8 ML IJ IVPB ONE (13:18)
[2023-06-09] MEDS: IBUPROFEN 800 MG/8 ML IJ IVPB PRN (13:24)
[2023-06-09] MEDS ORDERED: OXYTOCIN 20 UNITS in 0.9% NS 20 UNIT/1,000 ML INFUS.BAG IV ONE (14:32)
[2023-06-09] MEDS: OXYTOCIN 20 UNITS in 0.9% NS 20 UNIT/1,000 ML INFUS.BAG IV SCH (14:32)
[2023-06-09] MEDS: ONDANSETRON 4 MG/2 ML VIAL IVPUSH PRN (17:14)
[2023-06-10 07:10] LABS: BASO % 0.2 % (0-2.0); EOS % 0.5 % (0-4.5); HEMATOCRIT 32.4 % (32.4-45.2); HEMOGLOBIN 10.8 GM/dL (10.7-15.3); LYMPH % 10.2 % (8-40); MCH 28.9 pg (25.7-33.7); MCHC 33.3 g/dl (32.0-36.0); MEAN CELL VOLUME 86.7 fl (80-96); MEAN PLT VOLUME 8.3 fl (7.5-11.1); MONO % 8.9 % (3.8-10.2); NEUT % 80.2 % (42.8-82.8); PLATELET COUNT 266 10^3/uL (134-434); RBC 3.74 M/mm3 (3.60-5.2); RDW 14.5 % (11.6-15.6); WHITE BLOOD COUNT 14.6 K/mm3 (4.0-10.0)
[2023-06-10] MEDS: SIMETHICONE 80 MG TAB.CHEW (FP) PO PRN (09:00)
[2023-06-10] MEDS: IBUPROFEN 600 MG TABLET (FP) PO PRN (17:25)
[2023-06-10] MEDS: ACETAMINOPHEN 325 MG TABLET (FP) PO PRN (18:39)
[2023-06-10] MEDS: oxyCODONE HCL 5 MG TABLET PO PRN (19:38)
[2023-06-10] MEDS: SENNOSIDES/DOCUSATE COMBO (SENNA PLUS) TABLET (UD) PO PRN (21:54)
[2023-06-11] MEDS: oxyCODONE HCL 5 MG TABLET PO PRN (09:08)
[2023-06-11] MEDS: BISACODYL 10 MG SUPP.RECT RC PRN (14:33)
[2023-06-11 20:26] VITALS: RESP 16
[2023-06-12 08:34] LABS: BASO % 0.4 % (0-2.0); HEMATOCRIT 33.6 % (32.4-45.2); HEMOGLOBIN 11.1 GM/dL (10.7-15.3); LYMPH % 20.6 % (8-40); MCHC 33.1 g/dl (32.0-36.0); MEAN CELL VOLUME 87.6 fl (80-96); MEAN PLT VOLUME 7.9 fl (7.5-11.1); MONO % 9.2 % (3.8-10.2); NEUT % 66.8 % (42.8-82.8); PLATELET COUNT 294 10^3/uL (134-434); RBC 3.83 M/mm3 (3.60-5.2); RDW 14.7 % (11.6-15.6)
[2023-06-12 11:26] VITALS: BP 110/67; PULSE 80; TEMP 98.8
== END 2023-06-12 11:25 | disposition home or self-care (01) | DRG 540 ==
LOC: JLDR 07:00 → EDSTATUS 10:00 → JLDR 14:09 → J3W 14:45
PROVIDERS: ADMIT Obstetrics & Gynecology; ATTEND Obstetrics & Gynecology
PROC: 10D00Z1 Extraction of Products of Conception, Low, Open Approach (ICD-10-PCS; principal; 2023-06-09)
DX: O34.211 Maternal care for low transverse scar from previous cesarean delivery (principal); Z3A.39 39 weeks gestation of pregnancy; Z37.0 Single live birth
CPT/HCPCS: 36415; 36600; 80048; 82803; 85025; 85610; 85730; 86780; 86850; 86900; 86901; 87389; 94010

== ENCOUNTER 2024-04-01 08:29 | Emergency (ER) | payer OTHER ==
[2024-04-01 08:39] VITALS: RESP 20; BMI 29.1
[2024-04-01] MEDS ORDERED: METOCLOPRAMIDE HCL INJECTION 10 MG/2 ML VIAL ONE (09:40)
[2024-04-01] MEDS ORDERED: ACETAMINOPHEN INJECTION 100 ML ONE (09:40)
[2024-04-01] MEDS: SODIUM CHLORIDE 0.9% 500 ML INFUS.BAG IV ONE (10:03)
[2024-04-01] MEDS: METOCLOPRAMIDE HCL INJECTION 10 MG/2 ML VIAL IVPUSH ONE (10:04)
[2024-04-01] MEDS: ACETAMINOPHEN 1000 MG/100 ML BAG IVPB ONE (10:04)
[2024-04-01 10:47] LABS: BASO % 0.7 % (0-2.0); EOS % 0.1 % (0-4.5); HEMATOCRIT 39.3 % (32.4-45.2); HEMOGLOBIN 12.6 GM/dL (10.7-15.3); LYMPH % 17.1 % (8-40); MCH 27.4 pg (25.7-33.7); MCHC 31.9 g/dl (32.0-36.0); MEAN CELL VOLUME 85.9 fl (80-96); MEAN PLT VOLUME 7.6 fl (7.5-11.1); MONO % 13.4 % (3.8-10.2); NEUT % 68.7 % (42.8-82.8); PLATELET COUNT 251 10^3/uL (134-434); RBC 4.58 M/mm3 (3.60-5.2); RDW 13.5 % (11.6-15.6); WHITE BLOOD COUNT 5.5 K/mm3 (4.0-10.0)
[2024-04-01 11:06] LABS: POTASSIUM 3.9 mmol/L (3.5-5.1)
[2024-04-01 11:09] LABS: CALCIUM 8.8 mg/dL (8.5-10.1)
[2024-04-01 11:10] LABS: ALBUMIN 3.1 g/dl (3.4-5.0); BLOOD UREA NITROGEN 4.8 mg/dL (7-18)
[2024-04-01 11:13] LABS: CREATININE 0.8 mg/dL (0.55-1.3)
[2024-04-01 11:15] LABS: BILIRUBIN,TOTAL 0.3 mg/dL (0.2-1); TOT PROT 6.7 g/dl (6.4-8.2)
[2024-04-01 11:47] VITALS: BP 109/56; PULSE 78; TEMP 99
[2024-04-01 23:21] LABS: HIV INTERPRETATION NEGATIVE (NEGATIVE)
== END 2024-04-01 12:14 | disposition home or self-care (01) ==
LOC: JER 08:29
PROC: 3E033NZ Introduction of Analgesics, Hypnotics, Sedatives into Peripheral Vein, Percutaneous Approach (ICD-10-PCS; principal; 2024-04-01)
PROC: 3E033GC Introduction of Other Therapeutic Substance into Peripheral Vein, Percutaneous Approach (ICD-10-PCS; 2024-04-01)
DX: R53.1 Weakness (principal); R50.9 Fever, unspecified; R51.9 Headache, unspecified; R11.0 Nausea; R63.0 Anorexia; R61 Generalized hyperhidrosis; R42 Dizziness and giddiness; Z20.822 Contact with and (suspected) exposure to COVID-19
CPT/HCPCS: 0241U-QW; 36415; 80053; 84703; 85025; 86803; 87389; 93005; 93010; 99284-25; J0131